=== PATIENT | female | born 1940 | race Caucasian/White ===

== ENCOUNTER → 2016-10-16 | Outpatient (REF) | payer MEDICARE ==
[~2016-10-16] MED LIST: AMLO10TA2 PO; ASPI1TAB24 PO; ASPI325T PO; BENA20TA2 PO; BUPR1TAB17 PO; SERT-141 PO; SIMV40TA2 PO
[2016-10-16 16:40] LABS: ALBUMIN 4.2 GM/DL (3.2-5.2); ALBUMIN/GLOBULIN RATIO 1.45 (1.00-1.93); BILIRUBIN,TOTAL 0.5 MG/DL (0.2-1.0); CALCIUM LEVEL 8.6 MG/DL (8.8-10.2); CREATININE FOR GFR 1.1 MG/DL (0.55-1.02); GLOMERULAR FILTRATION RATE 51.5 (>39); POTASSIUM SERUM 4.4 MEQ/L (3.5-5.1); TOTAL PROTEIN 7.1 GM/DL (6.4-8.2)
== END ==
LOC: M LABDRAW1 15:24
PROVIDERS: ATTEND Emergency Medicine
DX: E55.9 Vitamin D deficiency, unspecified (principal); I10 Essential (primary) hypertension; E78.2 Mixed hyperlipidemia; R73.01 Impaired fasting glucose

== ENCOUNTER → 2017-05-24 | Outpatient (REF) | payer MEDICARE ==
[~2017-05-24] MED LIST changes: +ASPI-161 PO; -ASPI1TAB24 PO; -BENA20TA2 PO; +BENA20TA8 PO; -BUPR1TAB17 PO; +BUPR1TAB53 PO; -SERT-141 PO; +SERT50TA PO
[2017-05-24 13:41] LABS: ALBUMIN 3.8 GM/DL (3.2-5.2); ALBUMIN/GLOBULIN RATIO 1.46 (1.00-1.93); ALKALINE PHOSPHATASE 58 U/L (45-117); ALT/SGPT 20 U/L (12-78); ANION GAP 6 MEQ/L (8-16); AST/SGOT 13 U/L (15-37); BILIRUBIN,TOTAL 0.3 MG/DL (0.2-1.0); BLOOD UREA NITROGEN 19 MG/DL (7-18); CALCIUM LEVEL 8.3 MG/DL (8.8-10.2); CARBON DIOXIDE LEVEL 27 MEQ/L (21-32); CHLORIDE LEVEL 111 MEQ/L (98-107); CHOLESTEROL LEVEL 160 MG/DL (<200); CREATININE FOR GFR 0.92 MG/DL (0.55-1.02); GLOMERULAR FILTRATION RATE > 60.0 (>39); GLUCOSE, FASTING 95 MG/DL (83-110); POTASSIUM SERUM 4.6 MEQ/L (3.5-5.1); SODIUM LEVEL 144 MEQ/L (136-145); TOTAL PROTEIN 6.4 GM/DL (6.4-8.2); TRIGLYCERIDES LEVEL 100 MG/DL (<150)
== END ==
LOC: M LABDRAW1 13:08
PROVIDERS: ATTEND Emergency Medicine
DX: I10 Essential (primary) hypertension (principal); E78.2 Mixed hyperlipidemia; E55.9 Vitamin D deficiency, unspecified; R73.01 Impaired fasting glucose

== ENCOUNTER 2017-10-14 08:55 | Day surgery (SDC) | payer MEDICARE ==
[2017-10-14] MEDS ORDERED: LIDOCAINE 1% MDV 20ML VIAL SQ (09:15)
[2017-10-14] MEDS: PHENYLEPHRINE 2.5% OPHTH SOL 2ML OD (10:09)
[2017-10-14] MEDS: TROPICAMIDE 1% OPHTH SOLN 2ML OD (10:09)
[2017-10-14] MEDS: PROPARACAINE 0.5% OPHTH SOL 15ML OD (10:09)
[2017-10-14] MEDS: OFLOXACIN 0.3 % (OCUFLOX) OPTH SOL 5ML OD (10:10)
[2017-10-14] MEDS: POVIDONE-IODINE 5% OPHTH PREP SOL 30ML As Ordered (10:32)
[2017-10-14] MEDS: BALANCED SALT IRRIGATION SOLUTION 500ML BAG (FOR OR EYE MACHINE) As Ordered (10:34)
[2017-10-14] MEDS: DUOVISC (0.50ML VISCOAT/0.55ML PROVISC) OPHTH KIT As Ordered (10:34)
[2017-10-14] MEDS: LIDOCAINE 0.75%/EPINEPHRINE 0.025% IN BSS 1ML SYR INTRACAMERAL (OR ONLY) As Ordered (10:34)
[2017-10-14] MEDS: ACETYLCHOLINE OPHTH SOLN 1% 2ML (MIOCHOL-E) As Ordered (10:34)
[2017-10-14] MEDS: CEFUROXIME 1MG/0.1ML INTRACAMERAL INJ As Ordered (10:34)
[2017-10-14] MEDS ORDERED: MIDAZOLAM INJ 2 MG/2 ML VIAL (J2250) As Ordered (10:47)
[2017-10-14] MEDS ORDERED: fentaNYL 100 MCG/2 ML INJECTION (J3010) As Ordered (10:47)
[2017-10-15] MEDS ORDERED: PERCOCET 5MG/325MG TAB As Ordered (11:11)
[2017-10-15] MEDS ORDERED: ONDANSETRON 4MG/2ML VIAL (J2405) As Ordered (11:11)
== END 2017-10-14 10:51 | disposition home or self-care (01) ==
LOC: M SDC 08:55
DX: H25.11 Age-related nuclear cataract, right eye (principal); I25.10 Atherosclerotic heart disease of native coronary artery without angina pectoris; I10 Essential (primary) hypertension; E78.5 Hyperlipidemia, unspecified; Z87.891 Personal history of nicotine dependence; Z98.61 Coronary angioplasty status; Z79.899 Other long term (current) drug therapy
CPT/HCPCS: 66984

== ENCOUNTER 2017-10-21 06:00 | Day surgery (SDC) | payer MEDICARE ==
[2017-10-21] MEDS: PHENYLEPHRINE 2.5% OPHTH SOL 2ML OS (06:41)
[2017-10-21] MEDS: OFLOXACIN 0.3 % (OCUFLOX) OPTH SOL 5ML OS (06:41)
[2017-10-21] MEDS: TROPICAMIDE 1% OPHTH SOLN 2ML OS (06:41)
[2017-10-21] MEDS: PROPARACAINE 0.5% OPHTH SOL 15ML OS (06:42)
[2017-10-21] MEDS ORDERED: fentaNYL 100 MCG/2 ML INJECTION (J3010) As Ordered (07:28)
[2017-10-21] MEDS ORDERED: MIDAZOLAM INJ 2 MG/2 ML VIAL (J2250) As Ordered (07:28)
[2017-10-21] MEDS: POVIDONE-IODINE 5% OPHTH PREP SOL 30ML As Ordered (07:35)
[2017-10-21] MEDS: CEFUROXIME 1MG/0.1ML INTRACAMERAL INJ As Ordered (07:36)
[2017-10-21] MEDS: HEALON DUET (HEALON 10MG/ML 0.55ML & HEALON ENDOCOAT 30MG/ML 0.85ML) As Ordered (07:36)
[2017-10-21] MEDS: LIDOCAINE 0.75%/EPINEPHRINE 0.025% IN BSS 1ML SYR INTRACAMERAL (OR ONLY) As Ordered (07:36)
[2017-10-21] MEDS: BALANCED SALT IRRIGATION SOLUTION 500ML BAG (FOR OR EYE MACHINE) As Ordered (07:36)
[2017-10-21] MEDS: DUOVISC (0.50ML VISCOAT/0.55ML PROVISC) OPHTH KIT As Ordered (07:36)
[2017-10-21] MEDS: ACETYLCHOLINE OPHTH SOLN 1% 2ML (MIOCHOL-E) As Ordered (07:40)
== END 2017-10-21 08:17 | disposition home or self-care (01) ==
LOC: M SDC 06:00
DX: H25.12 Age-related nuclear cataract, left eye (principal); I10 Essential (primary) hypertension; E78.5 Hyperlipidemia, unspecified; I49.9 Cardiac arrhythmia, unspecified; I25.10 Atherosclerotic heart disease of native coronary artery without angina pectoris; R06.83 Snoring; Z79.899 Other long term (current) drug therapy; Z79.82 Long term (current) use of aspirin; Z86.718 Personal history of other venous thrombosis and embolism; Z90.710 Acquired absence of both cervix and uterus; Z87.891 Personal history of nicotine dependence; Z95.5 Presence of coronary angioplasty implant and graft
CPT/HCPCS: 66984

== ENCOUNTER → 2017-12-30 | Outpatient (REF) | payer MEDICARE ==
[2017-12-30 16:46] LABS: ALBUMIN/GLOBULIN RATIO 1.38 (1.00-1.93); ALKALINE PHOSPHATASE 55 U/L (45-117); ALT/SGPT 24 U/L (12-78); ANION GAP 4 MEQ/L (8-16); AST/SGOT 17 U/L (7-37); BILIRUBIN,TOTAL 0.4 MG/DL (0.2-1.0); BLOOD UREA NITROGEN 22 MG/DL (7-18); CALCIUM LEVEL 8.8 MG/DL (8.8-10.2); CARBON DIOXIDE LEVEL 29 MEQ/L (21-32); CHLORIDE LEVEL 108 MEQ/L (98-107); CHOLESTEROL LEVEL 176 MG/DL (<200); CHOLESTEROL RISK RATIO 3.087 (<5); CREATININE FOR GFR 1.04 MG/DL (0.55-1.30); GLOMERULAR FILTRATION RATE 54.8 (>39); GLUCOSE, FASTING 117 MG/DL (70-100); HDL CHOLESTEROL 57 MG/DL (>40); LDL CHOLESTEROL 88.6 MG/DL (<100); NON-HDL-C 119 MG/DL; POTASSIUM SERUM 4.4 MEQ/L (3.5-5.1); SODIUM LEVEL 141 MEQ/L (136-145); TOTAL PROTEIN 6.9 GM/DL (6.4-8.2); TRIGLYCERIDES LEVEL 152 MG/DL (<150)
[2017-12-30 16:49] LABS: TOTAL 25(OH) VITAMIN D 21.1 NG/ML (30.0-100.0)
[2017-12-30 16:50] LABS: ESTIMATED AVERAGE GLUCOSE 128 MG/DL (60-110); HEMOGLOBIN A1c 6.1 %
== END ==
LOC: M LABDRAW1 15:59
DX: E78.2 Mixed hyperlipidemia (principal); I10 Essential (primary) hypertension; E55.9 Vitamin D deficiency, unspecified; R73.01 Impaired fasting glucose
CPT/HCPCS: 80053

== ENCOUNTER 2018-03-15 12:50 | Emergency (ER) | payer OTHER, MEDICARE | END 2018-03-15 15:17 | disposition home or self-care (01) | LOC: M ED 12:50 | DX: M54.2 Cervicalgia (principal); M50.30 Other cervical disc degeneration, unspecified cervical region; V47.0XXA Car driver injured in collision with fixed or stationary object in nontraffic accident, initial encounter; Y92.89 Other specified places as the place of occurrence of the external cause; I10 Essential (primary) hypertension; F41.9 Anxiety disorder, unspecified; Z79.899 Other long term (current) drug therapy; Z79.82 Long term (current) use of aspirin; Z79.02 Long term (current) use of antithrombotics/antiplatelets | CPT/HCPCS: 72125 ==

== ENCOUNTER → 2019-08-01 | Outpatient (REF) | payer MEDICARE ==
[~2019-08-01] MED LIST changes: -AMLO10TA2 PO; +AMLO10TA5 PO; +ASPI-1 PO; -ASPI325T PO; +ATOR40TA75 PO; +CLOP75TA2 PO; +SERT-141 PO; -SERT50TA PO
[2019-08-01 14:30] LABS: BASO % 0.7 % (0.0-1.0); EOS # 0.1 10^3/uL (0.0-0.5); EOS % 2.2 % (0.0-3.0); HEMATOCRIT 37.9 % (36.0-47.0); LYMPH # 1.2 10^3/uL (1.5-5.0); LYMPH % 20.8 % (24.0-44.0); MEAN CORPUSCULAR HEMOGLOBIN 29.3 pg (27.0-33.0); MEAN CORPUSCULAR HGB CONC 31.7 g/dl (32.0-36.5); MEAN CORPUSCULAR VOLUME 92.4 fl (80.0-96.0); MONO # 0.5 10^3/uL (0.0-0.8); NEUTROPHILS # 4.1 10^3/uL (1.5-8.5); NEUTROPHILS % 68.1 % (36.0-66.0); PLATELET COUNT, AUTOMATED 197 10^3/uL (150-450)
[2019-08-01 14:35] LABS: BILIRUBIN,TOTAL 0.3 MG/DL (0.2-1.0); CALCIUM LEVEL 8.9 MG/DL (8.8-10.2); CHOLESTEROL RISK RATIO 3.16 (<5); CREATININE FOR GFR 1.01 MG/DL (0.55-1.30); GLOMERULAR FILTRATION RATE 56.6 (>39); POTASSIUM SERUM 4.6 MEQ/L (3.5-5.1)
[2019-08-01 14:58] LABS: HEMOGLOBIN A1c 6.2 %
== END ==
LOC: M LABDRAW1 13:21
PROVIDERS: ATTEND Physician Assistant
DX: E78.2 Mixed hyperlipidemia (principal); E55.9 Vitamin D deficiency, unspecified; R73.01 Impaired fasting glucose

== ENCOUNTER 2020-06-05 15:03 | Emergency (ER) | payer MEDICARE ==
[~2020-06-05] VITALS: Ht 162.6 cm; Wt 68.2 kg
[~2020-06-05 15:03] MED LIST changes: -AMLO10TA5 PO; +AMLO1TAB25 PO; -SIMV40TA2 PO; +SIMV40TA20 PO
--- NOTE | 2020-06-05 15:47 | REPVR ---
PROCEDURE INFORMATION: Exam: CT Head Without Contrast Exam date and time: 06/05/2020 3:36 PM Age: 79 years old Clinical indication: Injury or trauma; Fall; Blunt trauma (contusions or hematomas) TECHNIQUE: Imaging protocol: Computed tomography of the head without contrast. Radiation optimization: All CT scans at this facility use at least one of these dose optimization techniques: automated exposure control; mA and/or kV adjustment per patient size (includes targeted exams where dose is matched to clinical indication); or iterative reconstruction. COMPARISON: CT Head without contrast 01/19/2016 9:12 PM FINDINGS: Brain: There is no acute intracranial hemorrhage, cerebral edema, or midline shift. Chronic microvascular ischemic changes are seen in the periventricular white matter. Age-related cerebral and cerebellar volume loss is present. Cerebral ventricles: No ventriculomegaly. Bones/joints: No acute fracture. Paranasal sinuses: There is no acute sinusitis. Mastoid air cells: The mastoid air cells are clear. Orbits: The included orbital structures are unremarkable. Vasculature: Atherosclerotic calcifications are seen involving the cavernous carotid arteries. Soft tissues: Mild right frontal scalp swelling is present. IMPRESSION: 1. No acute intracranial abnormality. 2. Atrophy and chronic deep white matter ischemic changes. Electronically signed by: Anjel Mar On 06/05/2020 15:47:47 PM
[2020-06-05 16:06] VITALS: BP 139/64
== END 2020-06-05 16:14 | disposition home or self-care (01) ==
LOC: M ED 15:03
DX: S06.0X9A Concussion with loss of consciousness of unspecified duration, initial encounter (principal); S00.03XA Contusion of scalp, initial encounter; W10.8XXA Fall (on) (from) other stairs and steps, initial encounter; Y92.9 Unspecified place or not applicable; Y99.0 Civilian activity done for income or pay; I51.9 Heart disease, unspecified; F17.200 Nicotine dependence, unspecified, uncomplicated; Z79.899 Other long term (current) drug therapy

== ENCOUNTER → 2020-11-25 | Outpatient (REF) | payer MEDICARE ==
[2020-11-25 17:15] LABS: BASO % 0.6 % (0.0-1.0); EOS # 0.1 10^3/uL (0.0-0.5); EOS % 1.8 % (0.0-3.0); HEMATOCRIT 34.8 % (36.0-47.0); HEMOGLOBIN 11.1 g/dl (12.0-15.5); LYMPH # 1.6 10^3/uL (1.5-5.0); LYMPH % 22.8 % (24.0-44.0); MEAN CORPUSCULAR HEMOGLOBIN 29.6 pg (27.0-33.0); MEAN CORPUSCULAR HGB CONC 31.9 g/dl (32.0-36.5); MEAN CORPUSCULAR VOLUME 92.8 fl (80.0-96.0); MONO # 0.6 10^3/uL (0.0-0.8); MONO % 8.1 % (2.0-8.0); NEUTROPHILS # 4.5 10^3/uL (1.5-8.5); NEUTROPHILS % 66.4 % (36.0-66.0); PLATELET COUNT, AUTOMATED 180 10^3/uL (150-450); RED BLOOD COUNT 3.75 10^6/uL (4.00-5.40); WHITE BLOOD COUNT 6.8 10^3/uL (4.0-10.0)
[2020-11-25 18:05] LABS: ALBUMIN 3.8 GM/DL (3.2-5.2); BILIRUBIN,TOTAL 0.2 MG/DL (0.2-1.0); CHOLESTEROL RISK RATIO 3.169 (<5); CREATININE FOR GFR 1.03 MG/DL (0.55-1.30); FREE T4 0.78 NG/DL (0.76-1.46); POTASSIUM SERUM 4.5 MEQ/L (3.5-5.1); THYROID STIMULATING HORMONE 0.526 uIU/ML (0.358-3.740); TOTAL 25(OH) VITAMIN D 22.5 NG/ML (30.0-100.0); TOTAL PROTEIN 6.4 GM/DL (6.4-8.2)
[2020-11-25 18:58] LABS: HEMOGLOBIN A1c 5.8 %
== END ==
LOC: M LABDRWAD 16:28
PROVIDERS: ATTEND Nurse Practitioner Family
DX: I10 Essential (primary) hypertension (principal); R73.01 Impaired fasting glucose

== ENCOUNTER → 2021-03-17 | Outpatient (CLI) | payer MEDICARE ==
[~2021-03-17] MED LIST changes: +ASPI81TA26 PO; +BENA-8 PO; -BENA20TA8 PO; +BENA40TA84 PO; +CEFD300C41 PO; +FLAG500T PO; +PROBCAP14 PO
== END ==
LOC: M RAD 16:43
PROVIDERS: ATTEND Nurse Practitioner Family
DX: R10.30 Lower abdominal pain, unspecified (principal)

== ENCOUNTER → 2021-04-02 | Outpatient (CLI) | payer MEDICARE ==
[~2021-04-02] MED LIST changes: -BENA-8 PO; +BENA20TA8 PO; +BENA40TA5 PO; -BENA40TA84 PO; -CEFD300C41 PO; -FLAG500T PO; +GASTROGRAFIN SOLUTION 30ML (Q9963) As Ordered ONE; +ISOVUE-370 76% 100ML VIAL As Ordered ONE; -PROBCAP14 PO
--- NOTE | 2021-04-02 16:32 | REP ---
INDICATION: ABD PAIN. COMPARISON: None. TECHNIQUE: Helical scanning is acquired following the intravenous injection of 100 mL of Isovue 370. Oral contrast was also administered. 3 mm axial images re-formatted. Coronal and sagittal MPR images are included. FINDINGS: Preliminary digital automatic serging machine operator radiograph demonstrates surgical clips in the right upper quadrant. The lung bases are clear. There is no evidence of pleural or pericardial effusion. A small sliding-type hiatal hernia is noted. No adrenal lesion is observed. The gallbladder surgically absent with clips in the gallbladder fossa. The liver is normal in size homogeneous in texture. The spleen is normal and homogeneous. No abnormality is noted in the pancreas. Kidneys enhance symmetrically. No hydronephrosis is seen. There is a peripheral cyst in the lower pole the left kidney which measures 1.3 cm in greatest diameter. Extensive vascular calcification is noted in the aorta and its branches. There is no evidence of aneurysm. Small and large bowel loops are normal in the upper abdomen. Pelvic CT images demonstrate diverticulosis of the sigmoid colon. There is a long segment of mural thickening and moderate pericolonic fat stranding in the sigmoid colon consistent with diverticulitis. There is a small sliver of fluid in the left pericolic gutter. There is no evidence of abscess or free intraperitoneal air. Urinary bladder is unremarkable. No obstructive lesion is seen in the gastrointestinal tract. The appendix is surgically absent. IMPRESSION: Findings consistent with acute diverticulitis of the sigmoid colon. No abscess or free air seen. Post cholecystectomy, appendectomy, and hysterectomy. Small sliding hiatal hernia. <Electronically signed by Onel Carrillo > 04/02/21 [id number]
== END ==
LOC: M RAD 13:56
PROVIDERS: ATTEND Nurse Practitioner Family
DX: K44.9 Diaphragmatic hernia without obstruction or gangrene (principal); R10.30 Lower abdominal pain, unspecified; Z90.49 Acquired absence of other specified parts of digestive tract; Z90.710 Acquired absence of both cervix and uterus
CPT/HCPCS: 74177; Q9963; Q9967

== ENCOUNTER → 2021-04-02 | Outpatient (CLI) | payer MEDICARE ==
[~2021-04-02] MED LIST changes: -GASTROGRAFIN SOLUTION 30ML (Q9963) As Ordered ONE; -ISOVUE-370 76% 100ML VIAL As Ordered ONE
[2021-04-02 15:26] LABS: BASO % 0.3 % (0.0-1.0); EOS % 0.1 % (0.0-3.0); HEMATOCRIT 37.2 % (36.0-47.0); HEMOGLOBIN 11.4 g/dl (12.0-15.5); LYMPH # 1.5 10^3/uL (1.5-5.0); LYMPH % 9.6 % (24.0-44.0); MEAN CORPUSCULAR HEMOGLOBIN 27.9 pg (27.0-33.0); MEAN CORPUSCULAR HGB CONC 30.6 g/dl (32.0-36.5); MONO # 0.9 10^3/uL (0.0-0.8); MONO % 5.9 % (2.0-8.0); NEUTROPHILS # 12.8 10^3/uL (1.5-8.5); NEUTROPHILS % 83.6 % (36.0-66.0); PLATELET COUNT, AUTOMATED 251 10^3/uL (150-450); RED BLOOD COUNT 4.09 10^6/uL (4.00-5.40); WHITE BLOOD COUNT 15.3 10^3/uL (4.0-10.0)
[2021-04-02 15:53] LABS: ALBUMIN 3.5 GM/DL (3.2-5.2); BILIRUBIN,TOTAL 0.5 MG/DL (0.2-1.0); CALCIUM LEVEL 9.1 MG/DL (8.8-10.2); CREATININE FOR GFR 1.56 MG/DL (0.55-1.30); GLOMERULAR FILTRATION RATE 34.1 (>39); POTASSIUM SERUM 4.3 MEQ/L (3.5-5.1); TOTAL PROTEIN 6.8 GM/DL (6.4-8.2)
== END ==
LOC: M PLALAB 12:43
PROVIDERS: ATTEND Nurse Practitioner Family
DX: R10.30 Lower abdominal pain, unspecified (principal)

== ENCOUNTER 2021-04-03 17:17 | Inpatient (IN) | payer MEDICARE ==
[~2021-04-03] VITALS: Ht 160 cm; Wt 63.7 kg
[~2021-04-03 17:17] MED LIST changes: -ASPI81TA26 PO; +BENA-8 PO; -BENA20TA8 PO; -BENA40TA5 PO
[2021-04-03] MEDS ORDERED: NS 1,000 ML IV SCH (19:25)
[2021-04-03] MEDS ORDERED: BENA40TA84 PO (19:38)
[2021-04-03] MEDS ORDERED: ASPI81TA26 PO (19:38)
[2021-04-03] MEDS ORDERED: HOME MED LIST COMPLETE! XX SCH (19:40)
[2021-04-03 20:12] LABS: BASO % 0.3 % (0.0-1.0); EOS # 0.1 10^3/uL (0.0-0.5); EOS % 0.5 % (0.0-3.0); HEMATOCRIT 34.5 % (36.0-47.0); LYMPH # 1.5 10^3/uL (1.5-5.0); MEAN CORPUSCULAR HEMOGLOBIN 28.4 pg (27.0-33.0); MEAN CORPUSCULAR HGB CONC 31.9 g/dl (32.0-36.5); MEAN CORPUSCULAR VOLUME 88.9 fl (80.0-96.0); MONO # 0.8 10^3/uL (0.0-0.8); MONO % 7.5 % (2.0-8.0); NEUTROPHILS # 8.2 10^3/uL (1.5-8.5); NEUTROPHILS % 77.3 % (36.0-66.0); PLATELET COUNT, AUTOMATED 229 10^3/uL (150-450); RED BLOOD COUNT 3.88 10^6/uL (4.00-5.40); WHITE BLOOD COUNT 10.6 10^3/uL (4.0-10.0)
[2021-04-03 20:33] LABS: CALCIUM LEVEL 8.8 MG/DL (8.8-10.2); CREATININE FOR GFR 1.41 MG/DL (0.55-1.30); GLOMERULAR FILTRATION RATE 38.3 (>39); POTASSIUM SERUM 4.1 MEQ/L (3.5-5.1)
[2021-04-03] MEDS ORDERED: MOM 30ML SUSPENSION UDC PO PRN (21:30)
[2021-04-03] MEDS ORDERED: ONDANSETRON 4MG/2ML VIAL IV PRN (21:30)
[2021-04-03] MEDS ORDERED: ACETAMINOPHEN TAB 650MG DOSE (2X325MG) PO PRN (21:30)
[2021-04-03] MEDS ORDERED: MORPHINE 2 MG/ML 1ML VIAL (J2270) IV PRN (21:30)
[2021-04-03] MEDS ORDERED: MAALOX 30 ML SUSP *UDC PO PRN (21:30)
[2021-04-03 21:42] LABS: RSV AMPLIFICATION NEGATIVE (NEGATIVE)
[2021-04-04 00:06] VITALS: BP 161/72
[2021-04-04] MEDS: ASPIRIN 81MG ENTERIC TABLET PO SCH ×2 (00:34→22:12)
[2021-04-04] MEDS: HEPARIN SOD (PORCINE) 5000UNITS/ML 1ML VIAL/SYRINGE SC SCH ×4 (00:34→22:19)
[2021-04-04] MEDS: cefTRIAXone SOD 1 GM in D5W MINI-BAG PLUS 50 ML IV SCH ×2 (00:34→22:12)
[2021-04-04] MEDS: DOCUSATE SODIUM 100MG CAPSULE PO SCH ×4 (00:35→22:10)
[2021-04-04] MEDS: SERTRALINE HCL 50 MG TAB PO SCH ×2 (00:35→22:10)
[2021-04-04] MEDS: ATORVASTATIN 20 MG TAB PO SCH ×2 (00:35→22:11)
[2021-04-04] MEDS: metroNIDAZOLE 500 MG in IV 1 EA IV SCH ×3 (01:40→14:55)
[2021-04-04] MEDS: NS 1,000 ML IV SCH (03:57)
[2021-04-04 06:00] VITALS: BP 147/69
[2021-04-04 06:27] LABS: HEMATOCRIT 30.1 % (36.0-47.0); HEMOGLOBIN 9.4 g/dl (12.0-15.5); MEAN CORPUSCULAR HEMOGLOBIN 27.8 pg (27.0-33.0); MEAN CORPUSCULAR HGB CONC 31.2 g/dl (32.0-36.5); MEAN CORPUSCULAR VOLUME 89.1 fl (80.0-96.0); PLATELET COUNT, AUTOMATED 194 10^3/uL (150-450); RED BLOOD COUNT 3.38 10^6/uL (4.00-5.40); WHITE BLOOD COUNT 9.1 10^3/uL (4.0-10.0)
[2021-04-04 06:53] LABS: ALBUMIN 2.7 GM/DL (3.2-5.2); BILIRUBIN,TOTAL 0.3 MG/DL (0.2-1.0); CALCIUM LEVEL 8.2 MG/DL (8.8-10.2); CREATININE FOR GFR 0.99 MG/DL (0.55-1.30); GLOMERULAR FILTRATION RATE 57.6 (>39); MAGNESIUM LEVEL 2.5 MG/DL (1.8-2.4); POTASSIUM SERUM 4.1 MEQ/L (3.5-5.1); TOTAL PROTEIN 5.6 GM/DL (6.4-8.2)
[2021-04-04] MEDS: PANTOPRAZOLE 40MG VIAL (C9113 PER 1) IV SCH (08:21)
[2021-04-04 14:00] VITALS: BP 142/67
[2021-04-04 22:00] VITALS: BP 155/74
[2021-04-04 22:11] VITALS: BP 152/70
[2021-04-04 23:31] LABS: CREATININE,RANDOM URINE 51.1 MG/DL
[2021-04-05] MEDS: metroNIDAZOLE 500 MG in IV 1 EA IV SCH ×2 (00:06→08:16)
[2021-04-05 06:00] VITALS: BP 142/67
[2021-04-05] MEDS: DOCUSATE SODIUM 100MG CAPSULE PO SCH (08:16)
[2021-04-05] MEDS: NS 1,000 ML IV SCH (08:16)
[2021-04-05] MEDS: PANTOPRAZOLE 40MG VIAL (C9113 PER 1) IV SCH (08:16)
[2021-04-05] MEDS: HEPARIN SOD (PORCINE) 5000UNITS/ML 1ML VIAL/SYRINGE SC SCH (08:16)
[2021-04-05] MEDS ORDERED: FLAG500T PO (10:31)
[2021-04-05] MEDS ORDERED: CEFD300C41 PO (10:31)
[2021-04-05] MEDS ORDERED: PROBCAP14 PO (10:31)
== END 2021-04-05 14:03 | disposition home or self-care (01) | DRG 392 ==
LOC: M ED 17:17 → M ED INP 21:28 → M MSPAV 04-04 00:06
PROVIDERS: ADMIT Family Medicine; ATTEND Internal Medicine Nephrology
DX: K57.92 Diverticulitis of intestine, part unspecified, without perforation or abscess without bleeding (principal); N17.9 Acute kidney failure, unspecified; Z90.710 Acquired absence of both cervix and uterus; F41.9 Anxiety disorder, unspecified; F32.9 Major depressive disorder, single episode, unspecified; I10 Essential (primary) hypertension; E78.5 Hyperlipidemia, unspecified; F17.200 Nicotine dependence, unspecified, uncomplicated; Z79.82 Long term (current) use of aspirin; Z79.899 Other long term (current) drug therapy

== ENCOUNTER → 2021-04-17 | Outpatient (CLI) | payer MEDICARE ==
[~2021-04-17] MED LIST changes: +ASPI81TA26 PO; -BENA-8 PO; +BENA20TA8 PO; +BENA40TA5 PO; +CEFD1CAP8 PO; +FLAG500T PO; +PROBCAP14 PO
[2021-04-17 15:41] LABS: BLOOD UREA NITROGEN 26 MG/DL (7-18); CALCIUM LEVEL 8.7 MG/DL (8.8-10.2); CARBON DIOXIDE LEVEL 29 MEQ/L (21-32); CHLORIDE LEVEL 109 MEQ/L (98-107); CREATININE FOR GFR 0.94 MG/DL (0.55-1.30); GLOMERULAR FILTRATION RATE > 60.0 (>39); GLUCOSE, FASTING 82 MG/DL (70-100); POTASSIUM SERUM 4.5 MEQ/L (3.5-5.1); SODIUM LEVEL 143 MEQ/L (136-145)
== END ==
LOC: M PLALAB 14:06
PROVIDERS: ATTEND Nurse Practitioner Family
DX: I10 Essential (primary) hypertension (principal)

== ENCOUNTER → 2022-10-28 | Outpatient (REF) | payer MEDICARE ==
[~2022-10-28] MED LIST changes: +BENA-8 PO; -BENA20TA8 PO; -BENA40TA5 PO; +BENA40TA84 PO; -CEFD1CAP8 PO; +CEFD300C41 PO
[2022-10-28 16:52] LABS: BASO % 0.4 % (0.0-1.0); EOS # 0.1 10^3/uL (0.0-0.5); EOS % 2.2 % (0.0-3.0); HEMATOCRIT 37.7 % (36.0-47.0); HEMOGLOBIN 11.6 g/dl (12.0-15.5); LYMPH # 1.1 10^3/uL (1.5-5.0); LYMPH % 20.9 % (24.0-44.0); MEAN CORPUSCULAR HEMOGLOBIN 28.6 pg (27.0-33.0); MEAN CORPUSCULAR HGB CONC 30.8 g/dl (32.0-36.5); MEAN CORPUSCULAR VOLUME 92.9 fl (80.0-96.0); MONO # 0.5 10^3/uL (0.0-0.8); MONO % 9.3 % (2.0-8.0); NEUTROPHILS # 3.4 10^3/uL (1.5-8.5); NEUTROPHILS % 66.8 % (36.0-66.0); PLATELET COUNT, AUTOMATED 189 10^3/uL (150-450); RED BLOOD COUNT 4.06 10^6/uL (4.00-5.40); WHITE BLOOD COUNT 5.1 10^3/uL (4.0-10.0)
[2022-10-28 17:00] LABS: ALBUMIN 3.9 G/DL (3.2-5.2); BILIRUBIN,TOTAL 0.4 MG/DL (0.3-1.2); CALCIUM LEVEL 9.4 MG/DL (8.3-10.6); CREATININE FOR GFR 0.97 MG/DL (0.55-1.30); FREE T4 0.94 NG/DL (0.89-1.76); GLOMERULAR FILTRATION RATE 58.7 (>32); POTASSIUM SERUM 4.2 MMOL/L (3.5-5.1); THYROID STIMULATING HORMONE 1.202 uIU/ML (0.55-4.78)
[2022-10-28 19:01] LABS: TOTAL PROTEIN 6.8 G/DL (5.7-8.2)
== END ==
LOC: M LABDRWAD 16:00
PROVIDERS: ATTEND Nurse Practitioner Family
DX: R00.2 Palpitations (principal)

== ENCOUNTER → 2022-11-09 | Outpatient (CLI) | payer MEDICARE | LOC: M WHC 13:44 | PROVIDERS: ATTEND Nurse Practitioner Family | DX: R92.8 Other abnormal and inconclusive findings on diagnostic imaging of breast (principal) | CPT/HCPCS: 76642; 77066; G0279 ==

== ENCOUNTER → 2022-11-18 | Outpatient (CLI) | payer MEDICARE ==
[2022-11-18 09:53] VITALS: BP 132/68
== END ==
LOC: M WHCPRO 09:07
PROVIDERS: ATTEND Surgery
DX: R92.8 Other abnormal and inconclusive findings on diagnostic imaging of breast (principal); N63.10 Unspecified lump in the right breast, unspecified quadrant

== ENCOUNTER → 2022-11-24 | Outpatient (CLI) | payer MEDICARE ==
[~2022-11-24] MED LIST changes: +PROHANCE 279.3MG/ML 15ML VIAL As Ordered ONE
== END ==
LOC: M RAD 14:57
PROVIDERS: ATTEND Surgery
DX: N63.10 Unspecified lump in the right breast, unspecified quadrant (principal); N64.53 Retraction of nipple
CPT/HCPCS: A9576; C8908

== ENCOUNTER → 2022-11-27 | Outpatient (REF) | payer MEDICARE ==
[~2022-11-27] MED LIST changes: -PROHANCE 279.3MG/ML 15ML VIAL As Ordered ONE
[2022-11-27 16:43] LABS: CREATININE FOR GFR 1.08 MG/DL (0.55-1.30); GLOMERULAR FILTRATION RATE 51.8 (>32); POTASSIUM SERUM 4.6 MMOL/L (3.5-5.1)
== END ==
LOC: M SFHCADAM 11:37
PROVIDERS: ATTEND Surgery
DX: R92.8 Other abnormal and inconclusive findings on diagnostic imaging of breast (principal)

== ENCOUNTER → 2022-12-08 | Outpatient (CLI) | payer MEDICARE ==
[~2022-12-08] MED LIST changes: +**SFHN** SODIUM BICARBONATE 8.4% 10MEQ 10ML VIAL ONE; +LIDOCAINE 1% MDV 20ML VIAL ONE
[2022-12-08 09:41] VITALS: BP 162/62
== END ==
LOC: M WHCPRO 08:54
PROVIDERS: ATTEND Surgery
DX: R92.8 Other abnormal and inconclusive findings on diagnostic imaging of breast (principal); N63.11 Unspecified lump in the right breast, upper outer quadrant

== ENCOUNTER → 2023-03-17 | Outpatient (CLI) | payer MEDICARE ==
[~2023-03-17] MED LIST changes: -**SFHN** SODIUM BICARBONATE 8.4% 10MEQ 10ML VIAL ONE; -LIDOCAINE 1% MDV 20ML VIAL ONE
== END ==
LOC: M WHC 12:56
PROVIDERS: ATTEND Surgery
DX: Z12.31 Encounter for screening mammogram for malignant neoplasm of breast (principal)

== ENCOUNTER → 2023-03-30 | Outpatient (CLI) | payer MEDICARE | LOC: M RAD 09:44 | PROVIDERS: ATTEND Internal Medicine Cardiovascular Disease | DX: Z12.2 Encounter for screening for malignant neoplasm of respiratory organs (principal); F17.210 Nicotine dependence, cigarettes, uncomplicated; R06.02 Shortness of breath ==

== ENCOUNTER → 2023-12-01 | Outpatient (REF) | payer MEDICARE ==
[~2023-12-01] MED LIST changes: -ASPI-161 PO; +ASPI-615 PO; +CEFD1CAP9 PO; -CEFD300C41 PO
[2023-12-01 14:37] LABS: BASO # 0.1 10^3/uL (0.0-0.2); BASO % 0.9 % (0.0-1.0); EOS # 0.2 10^3/uL (0.0-0.5); EOS % 2.8 % (0.0-3.0); HEMATOCRIT 37.8 % (36.0-47.0); HEMOGLOBIN 11.9 g/dl (12.0-15.5); LYMPH # 1.4 10^3/uL (1.5-5.0); LYMPH % 26.2 % (24.0-44.0); MEAN CORPUSCULAR HEMOGLOBIN 29.6 pg (27.0-33.0); MEAN CORPUSCULAR HGB CONC 31.5 g/dl (32.0-36.5); MONO # 0.5 10^3/uL (0.0-0.8); MONO % 8.6 % (2.0-8.0); NEUTROPHILS # 3.3 10^3/uL (1.5-8.5); NEUTROPHILS % 61.1 % (36.0-66.0); PLATELET COUNT, AUTOMATED 194 10^3/uL (150-450); RED BLOOD COUNT 4.02 10^6/uL (4.00-5.40); WHITE BLOOD COUNT 5.3 10^3/uL (4.0-10.0)
[2023-12-01 15:10] LABS: ALBUMIN 3.8 G/DL (3.2-5.2); BILIRUBIN,TOTAL 0.4 MG/DL (0.3-1.2); CALCIUM LEVEL 9.3 MG/DL (8.3-10.6); CREATININE FOR GFR 1.04 MG/DL (0.55-1.30); POTASSIUM SERUM 4.4 MMOL/L (3.5-5.1); TOTAL PROTEIN 6.3 G/DL (5.7-8.2)
[2023-12-01 15:12] LABS: TOTAL 25(OH) VITAMIN D 50.1 NG/ML (20.0-100.0)
== END ==
LOC: M LABDRWAD 13:11
PROVIDERS: ATTEND Nurse Practitioner Family
DX: I10 Essential (primary) hypertension (principal); E55.9 Vitamin D deficiency, unspecified

== ENCOUNTER 2024-02-04 16:24 | Emergency (ER) | payer MEDICARE ==
[~2024-02-04] VITALS: Ht 162.6 cm; Wt 63.1 kg
[2024-02-04 16:27] VITALS: TEMP 97.8
[2024-02-04 17:20] LABS: VENOUS BASE EXCESS -2.1 (-2.0-2.0); VENOUS HCO3 24.7 MMOL/L (23.0-27.0); VENOUS O2 SATURATION 50.8 % (60.0-80.0); VENOUS PARTIAL PRESSURE CO2 50.2 mmHg (38.0-50.0); VENOUS PARTIAL PRESSURE O2 27.5 mmHg (30.0-50.0); VENOUS PH 7.309 UNITS (7.330-7.430); VENOUS STANDARD HCO3 21.7 MMOL/L; VENOUS TOTAL CO2 26.2 MMOL/L (24.0-28.0)
[2024-02-04 17:23] LABS: BASO % 0.5 % (0.0-1.0); EOS # 0.1 10^3/uL (0.0-0.5); EOS % 2.1 % (0.0-3.0); HEMATOCRIT 37.2 % (36.0-47.0); LYMPH # 1.7 10^3/uL (1.5-5.0); LYMPH % 29.3 % (24.0-44.0); MEAN CORPUSCULAR HEMOGLOBIN 29.8 pg (27.0-33.0); MEAN CORPUSCULAR HGB CONC 32.3 g/dl (32.0-36.5); MEAN CORPUSCULAR VOLUME 92.3 fl (80.0-96.0); MONO # 0.5 10^3/uL (0.0-0.8); MONO % 8.4 % (2.0-8.0); NEUTROPHILS # 3.4 10^3/uL (1.5-8.5); NEUTROPHILS % 59.4 % (36.0-66.0); PLATELET COUNT, AUTOMATED 196 10^3/uL (150-450); RED BLOOD COUNT 4.03 10^6/uL (4.00-5.40); WHITE BLOOD COUNT 5.7 10^3/uL (4.0-10.0)
[2024-02-04] MEDS: methylPREDNISolone 125MG 2ML VIAL IV ONE (17:40)
[2024-02-04 17:47] LABS: INR 1.06; PARTIAL THROMBOPLASTIN TIME 28.6 SECONDS (24.8-34.2); PROTHROMBIN TIME 13.5 SECONDS (12.5-14.5)
[2024-02-04] MEDS: IPRATROPIUM 0.5MG/ALBUTEROL 2.5MG INH SOL UD 3ML (DUONEB) NEB ONE (17:47)
[2024-02-04 17:48] LABS: ALKALINE PHOSPHATASE 58 U/L (46-116); ALT/SGPT 22 U/L (7.0-40); AST/SGOT 15 U/L (<34); BILIRUBIN,DIRECT < 0.1 MG/DL (<0.4); BILIRUBIN,TOTAL 0.3 MG/DL (0.3-1.2); BLOOD UREA NITROGEN 32 MG/DL (9-23); CARBON DIOXIDE LEVEL 28 MMOL/L (20-31); CHLORIDE LEVEL 107 MMOL/L (98-107); CK-MB VALUE MASS 1.5 NG/ML (<3.6); CREATININE FOR GFR 1.12 MG/DL (0.55-1.30); GLOMERULAR FILTRATION RATE 49.6 (>32); GLUCOSE, FASTING 111 MG/DL (74-106); POTASSIUM SERUM 4.3 MMOL/L (3.5-5.1); SODIUM LEVEL 139 MMOL/L (136-145); TOTAL PROTEIN 6.9 G/DL (5.7-8.2)
[2024-02-04 17:51] LABS: C REACTIVE PROTEIN QUANTITATIV < 0.40 MG/DL (<1.0)
[2024-02-04] MEDS: NS 1,000 ML IV ONE (18:02)
[2024-02-04 18:04] LABS: PROCALCITONIN <0.04 ng/ml
[2024-02-04 18:07] LABS: CPK CREATINE PHOSPHOKINASE 86 U/L (34-145); MB/CK RELATIVE INDEX 1.74 (< OR =4)
[2024-02-04] MEDS ORDERED: PRED10TA2 PO (18:25)
[2024-02-04] MEDS ORDERED: AZIT500T5 PO (18:25)
[2024-02-04] MEDS ORDERED: VENTAER INH (18:25)
[2024-02-04] MEDS ORDERED: BENZ200C70 PO (18:28)
[2024-02-04 18:42] VITALS: BP 184/84
[2024-02-04] MEDS: AZITHROMYCIN 250MG TABLET PO ONE (18:42)
[2024-02-04 18:45] VITALS: BP 187/84; O2SAT 96
[2024-02-04] MEDS: BENAZEPRIL 20 MG TAB PO ONE (18:53)
== END 2024-02-04 18:55 | disposition home or self-care (01) ==
LOC: M ED 16:24
DX: J44.1 Chronic obstructive pulmonary disease with (acute) exacerbation (principal); I45.10 Unspecified right bundle-branch block; I10 Essential (primary) hypertension; E78.5 Hyperlipidemia, unspecified; K57.92 Diverticulitis of intestine, part unspecified, without perforation or abscess without bleeding; F41.9 Anxiety disorder, unspecified; F17.200 Nicotine dependence, unspecified, uncomplicated; Z86.79 Personal history of other diseases of the circulatory system; Z79.52 Long term (current) use of systemic steroids; Z79.2 Long term (current) use of antibiotics; Z79.02 Long term (current) use of antithrombotics/antiplatelets; Z79.82 Long term (current) use of aspirin; Z79.899 Other long term (current) drug therapy
CPT/HCPCS: 71046; 80048; 80076; 82550; 82553; 82803; 83605; 83880; 84145; 84484; 85025; 85610; 85730; 86140; 86850; 86900; 86901; 87040; 87486; 87581; 87633; 87798; 93005; 93041; 94640; 94760; 96361; 96374; 99284; J2919

== ENCOUNTER → 2024-02-11 | Outpatient (CLI) | payer MEDICARE ==
[~2024-02-11] MED LIST changes: +AZIT500T5 PO; +BENZ200C70 PO; +PRED10TA2 PO; +VENTAER INH
== END ==
LOC: M RAD 12:00
PROVIDERS: ATTEND Nurse Practitioner Family
DX: R42 Dizziness and giddiness (principal); I67.82 Cerebral ischemia

== ENCOUNTER 2024-03-16 13:52 | Observation (INO) | payer MEDICARE ==
[~2024-03-16] VITALS: Ht 162.6 cm; Wt 61.5 kg
[2024-03-16 14:56] LABS: BASO # 0.1 10^3/uL (0.0-0.2); EOS # 0.1 10^3/uL (0.0-0.5); EOS % 2.2 % (0.0-3.0); HEMATOCRIT 35.7 % (36.0-47.0); HEMOGLOBIN 11.6 g/dl (12.0-15.5); LYMPH # 1.4 10^3/uL (1.5-5.0); LYMPH % 26.9 % (24.0-44.0); MEAN CORPUSCULAR HEMOGLOBIN 30.2 pg (27.0-33.0); MEAN CORPUSCULAR HGB CONC 32.5 g/dl (32.0-36.5); MONO # 0.4 10^3/uL (0.0-0.8); NEUTROPHILS # 3.2 10^3/uL (1.5-8.5); NEUTROPHILS % 61.7 % (36.0-66.0); PLATELET COUNT, AUTOMATED 172 10^3/uL (150-450); RED BLOOD COUNT 3.84 10^6/uL (4.00-5.40); WHITE BLOOD COUNT 5.1 10^3/uL (4.0-10.0)
[2024-03-16 15:24] LABS: CK-MB VALUE MASS < 1.0 NG/ML (<3.6)
[2024-03-16 15:26] LABS: ALBUMIN 3.8 G/DL (3.2-5.2); ALKALINE PHOSPHATASE 55 U/L (46-116); ALT/SGPT 21 U/L (7.0-40); AST/SGOT 14 U/L (<34); BILIRUBIN,DIRECT < 0.1 MG/DL (<0.4); BILIRUBIN,TOTAL 0.4 MG/DL (0.3-1.2); BLOOD UREA NITROGEN 30 MG/DL (9-23); CALCIUM LEVEL 9.3 MG/DL (8.3-10.6); CARBON DIOXIDE LEVEL 30 MMOL/L (20-31); CHLORIDE LEVEL 108 MMOL/L (98-107); CPK CREATINE PHOSPHOKINASE 78 U/L (34-145); CREATININE FOR GFR 1.17 MG/DL (0.55-1.30); GLOMERULAR FILTRATION RATE 47.1 (>32); GLUCOSE, FASTING 95 MG/DL (74-106); MB/CK RELATIVE INDEX 1.28 (< OR =4); POTASSIUM SERUM 4.8 MMOL/L (3.5-5.1); SODIUM LEVEL 142 MMOL/L (136-145); TOTAL PROTEIN 6.4 G/DL (5.7-8.2)
[2024-03-16 15:28] LABS: THYROID STIMULATING HORMONE 1.255 uIU/ML (0.55-4.78)
[2024-03-16] MEDS: NS 500 ML IV ONE (15:58)
[2024-03-16] MEDS ORDERED: VENTAER INH (18:49)
[2024-03-16] MEDS ORDERED: BENZ200C70 PO (18:49)
[2024-03-16] MEDS ORDERED: VITACAP8 PO (18:49)
[2024-03-16] MEDS ORDERED: GINK1TAB3 PO (18:49)
[2024-03-16] MEDS ORDERED: BENZONATATE 100MG CAPSULE PO PRN (18:50)
[2024-03-16] MEDS ORDERED: ALBUTEROL 90 MCG/ACT 8GM HFA INHALER INH PRN (18:50)
[2024-03-16] MEDS ORDERED: HOME MED LIST COMPLETE! XX SCH (18:50)
[2024-03-16] MEDS ORDERED: ISOVUE-370 76% 100ML VIAL As Ordered ONE (18:56)
[2024-03-16] MEDS ORDERED: hydrALAZINE 20MG/ML 1ML VIAL IV PRN (20:00)
[2024-03-16] MEDS: ASPIRIN 81MG ENTERIC TABLET PO SCH (21:08)
[2024-03-16] MEDS: ATORVASTATIN 20 MG TAB PO SCH (21:09)
[2024-03-16] MEDS: SERTRALINE HCL 50 MG TAB PO SCH (21:09)
[2024-03-16 21:24] VITALS: BP 206/94; TEMP 98; O2SAT 97
[2024-03-16] MEDS: BENAZEPRIL 20 MG TAB PO SCH (21:33)
[2024-03-16 22:58] VITALS: BP 131/60; TEMP 98; O2SAT 97
[2024-03-16 23:56] VITALS: BP 110/54; TEMP 97.3; O2SAT 96
[2024-03-17 03:28] VITALS: BP 119/66; TEMP 97.3; O2SAT 96
[2024-03-17 06:34] LABS: CALCIUM LEVEL 8.6 MG/DL (8.3-10.6); CREATININE FOR GFR 1.16 MG/DL (0.55-1.30); GLOMERULAR FILTRATION RATE 47.6 (>32); MAGNESIUM LEVEL 2.2 MG/DL (1.8-2.4); POTASSIUM SERUM 4.9 MMOL/L (3.5-5.1)
[2024-03-17 07:21] VITALS: BP 132/64; TEMP 97.6; O2SAT 93
[2024-03-17 09:00] VITALS: BP 128/58
[2024-03-17] MEDS: ISOSORBIDE MONONITRATE 10MG TABLET PO SCH (09:00)
[2024-03-17] MEDS: ENOXAPARIN 40MG/0.4ML SYRINGE (J1650 PER 10MG) SC SCH (09:39)
[2024-03-17 10:47] VITALS: BP_SYST 123; BP_SYST 165; BP_SYST 188; BP_DIAS 58; BP_DIAS 68; BP_DIAS 80
[2024-03-17] MEDS ORDERED: ISOS1TAB12 PO (11:10)
[2024-03-17] MEDS ORDERED: BENA20TA PO (11:10)
[2024-03-17 11:11] VITALS: BP 123/72; TEMP 97.5; O2SAT 94
[2024-03-17] MEDS ORDERED: BENAZEPRIL 20 MG TAB PO SCH ×2 (21:00)
== END 2024-03-17 14:45 | disposition home health service (06) ==
LOC: M ED 13:52 → M ED INP 13:53 → M PCU 21:17
PROVIDERS: ADMIT Student in an Organized Health Care Education/Training Program; ATTEND Student in an Organized Health Care Education/Training Program
DX: R55 Syncope and collapse (principal); I16.0 Hypertensive urgency; I95.1 Orthostatic hypotension; E78.5 Hyperlipidemia, unspecified; I10 Essential (primary) hypertension; I25.10 Atherosclerotic heart disease of native coronary artery without angina pectoris; Z98.61 Coronary angioplasty status; I45.19 Other right bundle-branch block; I65.21 Occlusion and stenosis of right carotid artery; R54 Age-related physical debility; Z79.82 Long term (current) use of aspirin; Z79.899 Other long term (current) drug therapy
CPT/HCPCS: 36415; 70450; 70496; 70498; 71045; 80048; 80076; 82550; 82553; 83735; 84443; 84484; 85025; 93005; 93306; 96372; 96374; 97161; 97165; 97530; 99285; G0378; J1650; Q9967

== ENCOUNTER → 2024-04-10 | Outpatient (CLI) | payer MEDICARE ==
[~2024-04-10] MED LIST changes: +BENA20TA PO; +GINK1TAB3 PO; +ISOS1TAB12 PO; +VITACAP8 PO
== END ==
LOC: M EKG 11:04
PROVIDERS: ATTEND Internal Medicine Cardiovascular Disease
DX: R55 Syncope and collapse (principal); I45.10 Unspecified right bundle-branch block; I44.1 Atrioventricular block, second degree

== ENCOUNTER → 2024-04-19 | Outpatient (REF) | payer MEDICARE ==
[2024-04-19 18:18] LABS: BASO # 0.1 10^3/uL (0.0-0.2); BASO % 0.8 % (0.0-1.0); EOS # 0.1 10^3/uL (0.0-0.5); EOS % 2.2 % (0.0-3.0); HEMATOCRIT 38.4 % (36.0-47.0); HEMOGLOBIN 12.1 g/dl (12.0-15.5); LYMPH # 1.7 10^3/uL (1.5-5.0); LYMPH % 25.8 % (24.0-44.0); MEAN CORPUSCULAR HEMOGLOBIN 29.6 pg (27.0-33.0); MEAN CORPUSCULAR HGB CONC 31.5 g/dl (32.0-36.5); MEAN CORPUSCULAR VOLUME 93.9 fl (80.0-96.0); MONO # 0.5 10^3/uL (0.0-0.8); MONO % 7.1 % (2.0-8.0); NEUTROPHILS # 4.1 10^3/uL (1.5-8.5); NEUTROPHILS % 63.9 % (36.0-66.0); PLATELET COUNT, AUTOMATED 209 10^3/uL (150-450); RED BLOOD COUNT 4.09 10^6/uL (4.00-5.40); WHITE BLOOD COUNT 6.4 10^3/uL (4.0-10.0)
[2024-04-19 18:50] LABS: ALBUMIN 4.1 G/DL (3.2-5.2); BILIRUBIN,TOTAL 0.5 MG/DL (0.3-1.2); CALCIUM LEVEL 9.2 MG/DL (8.3-10.6); CREATININE FOR GFR 1.1 MG/DL (0.55-1.30); GLOMERULAR FILTRATION RATE 50.6 (>32); POTASSIUM SERUM 4.4 MMOL/L (3.5-5.1)
== END ==
LOC: M LABDRWAD 17:06
PROVIDERS: ATTEND Nurse Practitioner Family
DX: R42 Dizziness and giddiness (principal)

== ENCOUNTER 2024-05-04 10:55 | Emergency (ER) | payer MEDICARE ==
[~2024-05-04] VITALS: Ht 162.6 cm; Wt 63.7 kg
[2024-05-04 11:34] LABS: BASO % 0.6 % (0.0-1.0); EOS # 0.1 10^3/uL (0.0-0.5); EOS % 1.9 % (0.0-3.0); HEMATOCRIT 37.1 % (36.0-47.0); LYMPH # 1.2 10^3/uL (1.5-5.0); LYMPH % 23.7 % (24.0-44.0); MEAN CORPUSCULAR HEMOGLOBIN 29.7 pg (27.0-33.0); MEAN CORPUSCULAR HGB CONC 32.3 g/dl (32.0-36.5); MEAN CORPUSCULAR VOLUME 91.8 fl (80.0-96.0); MONO # 0.4 10^3/uL (0.0-0.8); MONO % 7.1 % (2.0-8.0); NEUTROPHILS # 3.4 10^3/uL (1.5-8.5); NEUTROPHILS % 66.5 % (36.0-66.0); PLATELET COUNT, AUTOMATED 181 10^3/uL (150-450); RED BLOOD COUNT 4.04 10^6/uL (4.00-5.40); WHITE BLOOD COUNT 5.2 10^3/uL (4.0-10.0)
[2024-05-04 12:09] LABS: BILIRUBIN,TOTAL 0.4 MG/DL (0.3-1.2); CALCIUM LEVEL 9.3 MG/DL (8.3-10.6); CREATININE FOR GFR 0.97 MG/DL (0.55-1.30); GLOMERULAR FILTRATION RATE 58.5 (>32); MAGNESIUM LEVEL 2.1 MG/DL (1.8-2.4); POTASSIUM SERUM 4.1 MMOL/L (3.5-5.1); TOTAL PROTEIN 6.9 G/DL (5.7-8.2)
[2024-05-05 00:17] VITALS: BP 179/84
[2024-05-05] MEDS: BENAZEPRIL 20 MG TAB PO ONE (00:17)
[2024-05-05 06:45] VITALS: BP 156/76; TEMP 97.4; O2SAT 93
== END 2024-05-05 07:13 | disposition short-term general hospital (02) ==
LOC: M ED 10:55
DX: R55 Syncope and collapse (principal); I44.1 Atrioventricular block, second degree; R00.1 Bradycardia, unspecified; I45.10 Unspecified right bundle-branch block; I10 Essential (primary) hypertension; Z86.79 Personal history of other diseases of the circulatory system; Z79.52 Long term (current) use of systemic steroids; Z79.82 Long term (current) use of aspirin; Z79.02 Long term (current) use of antithrombotics/antiplatelets; Z79.899 Other long term (current) drug therapy

== ENCOUNTER → 2025-01-05 | Outpatient (CLI) | payer MEDICARE ==
[~2025-01-05] MED LIST changes: +BUPR150T15 PO; -BUPR1TAB53 PO; +ISOS10TA69 PO; -ISOS1TAB12 PO
== END ==
LOC: M CARPUL 14:03
PROVIDERS: ATTEND Registered Nurse
DX: I08.0 Rheumatic disorders of both mitral and aortic valves (principal); R06.02 Shortness of breath